=== PATIENT | male | born 1990 | race Caucasian/White ===

== ENCOUNTER → 2017-10-29 11:37 | Outpatient (CLI) | payer OTHER, SELFPAY ==
--- NOTE | 2017-10-29 11:45 | RAD_ITS ---
STUDY: X-RAY - LEFT ANKLE REASON FOR EXAM: Pain and lateral swelling from twisting injury. TECHNIQUE: 3 view(s) of the ankle. COMPARISON: None. FINDINGS: Normal visualized distal tibia and fibula. Normal medial and lateral malleoli. Normal tibiotalar articulation and ankle mortise. There is a small avulsion fracture at the dorsal aspect of the distal talus. The visualized subtalar, talonavicular, calcaneocuboid and tarsal articulations are normal. There is soft tissue swelling at the lateral and dorsal aspects of the ankle. RAD/Ankle min 3 Views IMPRESSION: Small avulsion fracture of the dorsal aspect of the distal talus. Soft tissue swelling. Electronically Signed: Jacinto Wells MD at 12:33 EDT Tel , Service support ,
--- NOTE | 2017-10-29 11:45 | RAD_ITS ---
STUDY: X-RAY - LEFT FOOT CLINICAL: Pain and lateral swelling from twisting injury. TECHNIQUE: 3 view(s) of the foot. COMPARISON: None. FINDINGS: There is a small avulsion fracture of the dorsal aspect of the distal talus. Normal visualized subtalar, talonavicular, calcaneocuboid, tarsal and tarsometatarsal articulations. Normal metatarsi. Normal metatarsophalangeal joint of the great toe. Normal tibial and fibular sesamoid bones. Normal interphalangeal joint of the great toe. Normal phalanges of the great toe. Normal second through fifth metatarsophalangeal joints. Normal interphalangeal joints and phalanges of the lesser toes. There is soft tissue swelling at the dorsal aspect of the foot. There is a small os peroneum. RAD/Foot min 3 Views IMPRESSION: Small avulsion fracture of the dorsal aspect of the distal talus. Soft tissue swelling. Electronically Signed: Jacinto Wells MD at 12:32 EDT Tel , Service support ,
== END ==
PROVIDERS: Visit Provider Physician Assistant
DX: S93.402A Sprain of unspecified ligament of left ankle, initial encounter (principal); S93.602A Unspecified sprain of left foot, initial encounter; X58.XXXA Exposure to other specified factors, initial encounter; Y93.9 Activity, unspecified; Y92.9 Unspecified place or not applicable; Y99.9 Unspecified external cause status
CPT/HCPCS: 73610; 73630